=== PATIENT | male | born 1970 | race Caucasian/White ===

== ENCOUNTER 2021-10-19 15:53 | Inpatient (IN) | payer OTHER ==
[2021-10-19 18:05] LABS: BASO % 0.7 % (0-2.0); EOS % 0.4 % (0-4.5); HEMATOCRIT 39.9 % (35.4-49); HEMOGLOBIN 13.1 GM/dL (11.7-16.9); LYMPH % 13.4 % (8-40); MCH 27.3 pg (25.7-33.7); MCHC 32.8 g/dl (32.0-35.9); MEAN CELL VOLUME 83.3 fl (80-96); MEAN PLT VOLUME 8.2 fl (7.5-11.1); MONO % 7.5 % (3.8-10.2); PLATELET COUNT 363 10^3/uL (134-434); RBC 4.79 M/mm3 (4.00-5.60); RDW 14.6 % (11.9-15.9); WHITE BLOOD COUNT 14.9 K/mm3 (4.0-10.0)
[2021-10-19 18:16] LABS: ACTIVATED PTT 33.7 SECONDS (25.2-36.5); INR 1.06 (0.83-1.09); PROTHROMBIN TIME (PATIENT) 12.2 SEC (9.7-13.0)
[2021-10-19] MEDS ORDERED: VANCOMYCIN 1 GM in D5W (PRE-DOCKED) 1,000 MG/250 ML IVPB ONE (18:22)
[2021-10-19] MEDS ORDERED: SODIUM CHLORIDE 0.9% 500 ML INFUS.BAG IV ONE (18:22)
[2021-10-19] MEDS ORDERED: PIPERACILLIN/TAZOB 4.5 GM 4.5 GM in DEXTROSE 5%-WATER 100 ML IVPB ONE (18:25)
[2021-10-19 18:26] LABS: CHLORIDE 98 mmol/L (98-107); SODIUM 134 mmol/L (136-145)
[2021-10-19 18:30] LABS: ALBUMIN 3.2 g/dl (3.4-5.0); ANION GAP 8 MMOL/L (8-16); BLOOD UREA NITROGEN 11.2 mg/dL (7-18); CALCIUM 8.7 mg/dL (8.5-10.1); CO2 28 mmol/L (21-32); GLUCOSE,RANDOM 102 mg/dL (74-106)
[2021-10-19 18:34] LABS: CREATININE 0.9 mg/dL (0.55-1.3); SGOT/AST 33 U/L (15-37); SGPT/ALT 202 U/L (13-61)
[2021-10-19 18:35] LABS: BILIRUBIN,TOTAL 1.2 mg/dL (0.2-1); TOT PROT 8.9 g/dl (6.4-8.2)
[2021-10-19 18:37] LABS: ALK PHOS 167 U/L (45-117)
[2021-10-19] MEDS ORDERED: ACETAMINOPHEN 500 MG TABLET (FP) PO ONE (22:52)
[2021-10-20] MEDS ORDERED: ACETAMINOPHEN 325 MG TABLET (FP) ONE (00:07)
[2021-10-20] MEDS: LINEZOLID 600 MG TABLET (RESTRICTED TO ID) PO ONE ×2 (00:15→10:59)
[2021-10-20] MEDS ORDERED: ACETAMINOPHEN 325 MG TABLET (FP) PO PRN (00:48)
[2021-10-20 07:35] VITALS: BMI 30.8
[2021-10-20 08:31] LABS: BASO % 0.3 % (0-2.0); EOS % 0.4 % (0-4.5); HEMATOCRIT 38.9 % (35.4-49); HEMOGLOBIN 12.9 GM/dL (11.7-16.9); LYMPH % 9.7 % (8-40); MCH 27.5 pg (25.7-33.7); MCHC 33.1 g/dl (32.0-35.9); MEAN PLT VOLUME 8.4 fl (7.5-11.1); MONO % 9.9 % (3.8-10.2); NEUT % 79.7 % (42.8-82.8); PLATELET COUNT 380 10^3/uL (134-434); RBC 4.69 M/mm3 (4.00-5.60); RDW 14.5 % (11.9-15.9); WHITE BLOOD COUNT 14.9 K/mm3 (4.0-10.0)
[2021-10-20 08:53] LABS: MAGNESIUM 2.6 mg/dL (1.8-2.4)
[2021-10-20 08:56] LABS: PHOSPHOROUS 2.5 mg/dL (2.5-4.9)
[2021-10-20] MEDS ORDERED: LINEZOLID 600 MG TABLET (RESTRICTED TO ID) PO SCH ×2 (10:00)
[2021-10-20] MEDS ORDERED: BICTEGRAV/EMTRICIT/TENOFOV (BIKTARVY) 50-200-25 MG TABLET PO SCH (10:00)
[2021-10-20] MEDS ORDERED: NICOTINE 7 MG/24 HOURS TOPICAL PATCH TD SCH (10:00)
[2021-10-20] MEDS ORDERED: cloNIDine HCL 0.1 MG TABLET PO PRN ×2 (10:24→16:37)
[2021-10-20] MEDS ORDERED: methaDONE HCL 10 MG TABLET PO ONE (10:45)
[2021-10-20 11:40] LABS: PH,URINE 7.5 (5.0-8.0); URINE APPEARANCE CLEAR; URINE BILIRUBIN NEGATIVE (NEGATIVE); URINE COLOR YELLOW; URINE GLUCOSE (UA) NEGATIVE (NEGATIVE); URINE KETONE NEGATIVE (NEGATIVE); URINE LEUK ESTERASE NEGATIVE (NEGATIVE); URINE NITRITE NEGATIVE (NEGATIVE); URINE PROTEIN NEGATIVE (NEGATIVE)
[2021-10-20] MEDS ORDERED: PROPOFOL 20 ML ONE ×2 (14:34)
[2021-10-20] MEDS ORDERED: ROCURONIUM BROMIDE 100 MG/10 ML VIAL ONE (14:34)
[2021-10-20] MEDS ORDERED: MIDAZOLAM HCL 2 MG/2 ML SINGLE DOSE VIAL ONE ×2 (14:34)
[2021-10-20] MEDS ORDERED: VANCOMYCIN/WATER FOR INJ (PEG) 1,000 MG/200 ML BAG IVPB SCH (15:15)
[2021-10-20] MEDS ORDERED: PIPERACILLIN/TAZOB 3.375 GM 3.375 GM in DEXTROSE 5%-WATER - 50 ML IVPB SCH (15:16)
[2021-10-20] MEDS ORDERED: hydrOXYzine PAMOATE 25 MG CAPSULE (FP) PO PRN ×2 (15:33→16:37)
[2021-10-20] MEDS ORDERED: LORazepam 1 MG TABLET PO PRN ×2 (15:35→16:45)
[2021-10-20] MEDS ORDERED: LORazepam 2 MG TABLET PO PRN (16:37)
[2021-10-20] MEDS ORDERED: ONDANSETRON 4 MG/2 ML VIAL IVPUSH PRN (16:51)
[2021-10-20] MEDS ORDERED: LACTATED RINGERS SOLUTION 1,000 ML IV SCH (17:00)
[2021-10-20] MEDS ORDERED: PIPERACILLIN/TAZOBACTAM 3.375 GM VIAL IVPB ONE (18:03)
[2021-10-20] MEDS ORDERED: DEXTROSE 5%-WATER - 50 ML IVPB ONE (18:04)
[2021-10-20] MEDS: PIPERACILLIN/TAZOB 3.375 GM 3.375 GM in DEXTROSE 5%-WATER - 50 ML IVPB SCH (18:08)
[2021-10-20] MEDS: ACETAMINOPHEN 325 MG TABLET (FP) PO PRN (18:27)
[2021-10-21] MEDS ORDERED: DEXTROSE 5%-WATER - 50 ML IVPB ONE ×2 (01:16→09:23)
[2021-10-21] MEDS ORDERED: PIPERACILLIN/TAZOBACTAM 3.375 GM VIAL IVPB ONE ×2 (01:16→09:23)
[2021-10-21] MEDS: PIPERACILLIN/TAZOB 3.375 GM 3.375 GM in DEXTROSE 5%-WATER - 50 ML IVPB SCH ×2 (01:31→09:29)
[2021-10-21] MEDS: ACETAMINOPHEN 325 MG TABLET (FP) PO PRN ×2 (01:31→07:39)
[2021-10-21] MEDS ORDERED: VANCOMYCIN/WATER FOR INJ (PEG) 1,000 MG/200 ML BAG IVPB SCH (03:15)
[2021-10-21 06:50] VITALS: TEMP 97.9
[2021-10-21] MEDS ORDERED: methaDONE HCL 10 MG TABLET ONE (09:24)
[2021-10-21] MEDS ORDERED: NICOTINE 7 MG/24 HOURS TOPICAL PATCH TD SCH (10:00)
[2021-10-21] MEDS ORDERED: BICTEGRAV/EMTRICIT/TENOFOV (BIKTARVY) 50-200-25 MG TABLET PO SCH (10:00)
[2021-10-21 11:24] VITALS: BP 107/69; PULSE 66
[2021-10-22] MEDS ORDERED: methaDONE HCL 10 MG TABLET PO ONE ×2 (10:00)
[2021-10-24] MEDS ORDERED: methaDONE HCL 10 MG TABLET PO ONE ×2 (10:00)
== END 2021-10-21 10:49 | disposition left against medical advice (07) | DRG 571 ==
LOC: JER 15:53 → JERBED 23:31 → J5S 10-20 04:48
PROVIDERS: ADMIT Internal Medicine; ATTEND Internal Medicine
PROC: 0J9F0ZZ Drainage of Left Upper Arm Subcutaneous Tissue and Fascia, Open Approach (ICD-10-PCS; 2021-10-20)
PROC: 0JBF0ZZ Excision of Left Upper Arm Subcutaneous Tissue and Fascia, Open Approach (ICD-10-PCS; principal; 2021-10-20 15:00)
DX: L02.414 Cutaneous abscess of left upper limb (principal); F11.23 Opioid dependence with withdrawal; L03.114 Cellulitis of left upper limb; F14.10 Cocaine abuse, uncomplicated; Z21 Asymptomatic human immunodeficiency virus [HIV] infection status; F20.9 Schizophrenia, unspecified; F17.210 Nicotine dependence, cigarettes, uncomplicated; R74.01 Elevation of levels of liver transaminase levels; R79.89 Other specified abnormal findings of blood chemistry; Z53.29 Procedure and treatment not carried out because of patient's decision for other reasons
CPT/HCPCS: 36415; 73200-TC-RT; 76705-TC; 80053; 81003; 82553; 83036; 83605; 83735; 84100; 85025; 85610; 85651; 85730; 86140; 86359; 86360; 86705; 86707; 86850; 86900; 86901; 87040; 87070; 87077; 87205; 87340; 87517; 87902; 93005; 93010; 94760; 99285-25; C9803-CS; U0003; U0005